=== PATIENT | female | born 1970 | race Caucasian/White ===

== ENCOUNTER 2021-08-20 11:14 | Outpatient (RCR) | payer MEDICAID, SELFPAY ==
[2021-08-20] VITALS (11 sets, daily range): BP systolic 112–143; BP diastolic 71–84; PULSE 75–89; RESP 16–18; TEMP 36.3–37.4; O2SAT 97–99
--- NOTE | 2021-08-20 19:46 | PC.NURSE ---
pt got 2 units of bllod with mikaela problems. SL was d/c intact. she is eating, drinking dn voiding, gave education on blood transfusion reactions, anemia and iron rich food. she has a HBg and md appt on monday.
== END 2021-09-05 23:59 | disposition home or self-care (01) ==
LOC: CCIC 11:14
PROVIDERS: PCP Physician Assistant Medical; Visit Provider Clinical Nurse Specialist
DX: D64.9 Anemia, unspecified (principal)
CPT/HCPCS: 36415; 36430; 86850; 86900; 86901; 86922; 96366; P9016

== ENCOUNTER 2021-08-30 09:15 | Outpatient (CLI) | payer MEDICAID, SELFPAY | END 2021-08-30 09:16 | disposition home or self-care (01) | PROVIDERS: PCP Physician Assistant Medical; Visit Provider Internal Medicine Gastroenterology | DX: D50.9 Iron deficiency anemia, unspecified (principal); K57.30 Diverticulosis of large intestine without perforation or abscess without bleeding; K92.1 Melena; K44.9 Diaphragmatic hernia without obstruction or gangrene; Z86.010 Personal history of colon polyps; Z98.890 Other specified postprocedural states | CPT/HCPCS: 43239; 45378; 88305; J2250; J3010 ==

== ENCOUNTER 2023-03-01 07:29 | Outpatient (CLI) | payer MEDICAID, SELFPAY ==
--- NOTE | 2023-03-01 08:00 | CRLHL7_ITS ---
For Patients: As a result of the Century Cures Act, medical imaging exams and procedure reports are released immediately into your electronic medical record. You may view this report before your referring provider. If you have questions, please contact your health care provider. INDICATION: Large hiatal hernia TECHNIQUE: Volumetric helical scanning of the chest, abdomen and pelvis was performed with 97 cc of Isovue 370 contrast material IV. Coronal and sagittal reconstructions were obtained. COMPARISON: None. FINDINGS: CHEST: A large hiatal hernia is demonstrated. Mild passive atelectasis in the left lower lobe adjacent to the hernia is noted. The lungs are otherwise clear. A calcified granuloma in the left lower lobe is noted. No airway abnormality or pleural effusion is noted. No axillary, mediastinal or hilar adenopathy is apparent. The heart is normal in size. ABDOMEN/PELVIS: Fatty change is demonstrated in the liver. The liver is normal in size and shape. Postop changes of cholecystectomy are noted. The bile ducts are within normal limits. The spleen is normal in size. A number of splenules are noted. A nonspecific 1 cm low-attenuation splenic lesion is demonstrated, presumably a cyst. The kidneys are unremarkable. Colonic diverticulosis is noted. A normal appendix is demonstrated. An IUD is present in the uterine cavity and appears to be properly positioned. The uterus is otherwise unremarkable. The ovaries are negative. No lytic or blastic bone lesion is identified. IMPRESSION: 1. Large hiatal hernia. 2. Fatty liver. 3. Post cholecystectomy. 4. 1 cm low-attenuation splenic lesion, presumably a cyst. 5. Colonic diverticulosis. Please note that all CT scans at this facility use dose modulation, iterative reconstruction, and/or weight-based dosing when appropriate to reduce radiation dose to as low as reasonably achievable. Dictated by Benny Garcia MD @ 03/01/2023 10:33:04 AM (Electronically Signed)
== END 2023-03-01 07:30 | disposition home or self-care (01) ==
LOC: CT 07:34
PROVIDERS: PCP Family Medicine; Visit Provider Internal Medicine Gastroenterology
DX: K44.9 Diaphragmatic hernia without obstruction or gangrene (principal); K76.0 Fatty (change of) liver, not elsewhere classified; K57.30 Diverticulosis of large intestine without perforation or abscess without bleeding; D50.9 Iron deficiency anemia, unspecified; K29.70 Gastritis, unspecified, without bleeding
CPT/HCPCS: 71260; 74177; Q9967

== ENCOUNTER 2023-12-05 13:09 | Emergency (ER) | payer MEDICAID, SELFPAY ==
[2023-12-05] VITALS (28 sets, daily range): BP systolic 125–184; BP diastolic 80–115; PULSE 55–102; RESP 20; TEMP 36.8–37.1; O2SAT 90–99; BMI 26.6
--- NOTE | 2023-12-05 13:31 | CRLHL7_ITS ---
For Patients: As a result of the Century Cures Act, medical imaging exams and procedure reports are released immediately into your electronic medical record. You may view this report before your referring provider. If you have questions, please contact your health care provider. INDICATION: Left flank pain. TECHNIQUE: CT abdomen and pelvis acquired without contrast. COMPARISON: CT chest, abdomen and pelvis 03/01/2023. FINDINGS: Lower chest: Lung bases are clear. Interval Diana fundoplication. No pleural or pericardial effusions. Liver: Unremarkable. Spleen: Suspected small cyst is unchanged. Pancreas: Unremarkable. Gallbladder and bile ducts: Cholecystectomy. No ductal dilatation. Kidneys: A 5 mm stone in the distal left ureter near the ureterovesicular junction causes mild hydroureteronephrosis. Additional nonobstructing renal stones measure up to 5 mm on the left. The unenhanced kidneys are otherwise unremarkable. Adrenal glands: Unremarkable. GI tract: Colonic diverticulosis without evidence of acute diverticulitis. No obstruction or focal inflammatory changes. Normal appendix. No free air or free fluid. Lymph nodes: No pathologic lymphadenopathy. Vascular structures: Mild atherosclerotic disease. No abdominal aortic aneurysm. Pelvic Organs: Intrauterine device appears appropriately positioned. Adnexal regions and bladder as imaged are unremarkable. Bones: No acute or suspicious osseous abnormality. IMPRESSION: Mild left hydroureteronephrosis secondary to distal 5 mm ureteral stone. Dictated by Andry Reyes MD @ 12/05/2023 2:51:20 PM Please note that all CT scans at this facility use dose modulation, iterative reconstruction, and/or weight-based dosing when appropriate to reduce radiation dose to as low as reasonably achievable. Dictated by: Andry Reyes MD @ 12/05/2023 14:51:43 (Electronically Signed)
[2023-12-05] MEDS: MORPHINE 4 MG/ML INJ IVP ×3 (13:39→16:20)
[2023-12-05] MEDS: 0.9 % SODIUM CHLORIDE 500 ML 500 ML IV (13:43)
[2023-12-05] MEDS: ONDANSETRON 2 MG/ML inj 4 MG IVP (13:43)
[2023-12-05 13:47] LABS: Appearance Urine Cloudy (Clear); Bilirubin Urine Negative (Negative); Blood Urine 3+ (Negative); Color Urine Yellow (Yellow); Glucose Urine Negative (Negative); Ketones Urine Trace (Negative); Leukocyte Esterase Urine Trace (Negative); Nitrite Urine Positive (Negative); Protein Urine 2+ (Negative); Specific Gravity Urine >= 1.030 (1.000-1.030); Urobilinogen Urine 0.2 (0.2-1.0); pH Urine 5.5 (5.0-8.5)
[2023-12-05] MEDS: KETOROLAC 15 MG/ML inj IVP (13:47)
[2023-12-05 13:58] LABS: Amorphous Sediment Urine Moderate; Bacteria Urine Many; RBC Urine >100 (0-2); Squamous Epithelial Cell Urine Many (None-Few); WBC Urine 25-50 (0-5)
[2023-12-05 14:00] LABS: Chloride* 100 mmol/L (96-114); Sodium* 137 mmol/L (135-149)
[2023-12-05 14:01] LABS: Basophils Absolute Auto 0.02 K/uL (0.00-0.30); Basophils Percent Auto 0.2 % (0.0-3.0); Eosinophils Absolute Auto 0.03 K/uL (0.00-0.50); Eosinophils Percent Auto 0.4 % (0.0-7.0); Hemoglobin* 14.3 gm/dL (12.0-16.0); Immature Granulocytes Abs Auto 0.02 K/uL (0.00-0.30); Immature Granulocytes Pct Auto 0.2 %; Lymphocytes Percent Auto 15.3 % (20-44); Mean Corpuscular HGB Conc 33 gm/dL (32-36); Mean Corpuscular Hemoglobin 31 pg (26-34); Mean Corpuscular Volume 92 fL (80-100); Monocytes Percent Auto 8.1 % (0.0-11.0); Neutrophils Percent Auto 75.8 % (42.0-72.0); Platelet Count* 233 K/uL (140-440); Potassium* 4.1 mmol/L (3.6-5.1); RDW Coefficient of Variation % 11.7 % (11.5-15.5); Red Blood Count 4.67 m/uL (4.00-5.20); White Blood Count* 8.36 K/uL (4.50-11.00)
[2023-12-05 14:03] LABS: Creatinine* 0.9 mg/dL (0.5-1.5); Est. Creatinine Clearance* 72.08; Estimated Glomerular Filt Rate 76 ml/min
[2023-12-05 14:04] LABS: Anion Gap 13 mEq/L (7-15); Blood Urea Nitrogen* 14 mg/dL (7-30); Calcium* 9.8 mg/dL (8.4-10.6); Carbon Dioxide* 24 mmol/L (20-32); Glucose* 108 mg/dL (60-115)
[2023-12-05 14:08] LABS: C Reactive Protein* < 0.5 mg/dL (0.5-1.0)
[2023-12-05 14:09] LABS: Slide Review Reflex No
[2023-12-05] MEDS: OXYCODONE 5 MG TABLET PO (15:32)
--- NOTE | 2023-12-05 15:38 | ED_ITS ---
HPI - General Adult General Date Seen: 12/05/23 Chief complaint: Abdominal Pain Stated complaint: Poss kidney stone Time Seen by Provider: 12/05/23 13:11 Source: patient, RN notes reviewed and old records reviewed Mode of arrival: ambulatory Limitations: no limitations History of Present Illness HPI narrative: Patient is a 53-year-old woman who presents for evaluation of left flank pain ra diating to the left lower quadrant and groin. Started earlier today and has become severe. She does note a remote history of a kidney stone over 20 years ago, she says she believes she has other stones in her kidneys but has never had another ureteral stone. She has nausea, diaphoresis, no vomiting, no fevers or urinary symptoms otherwise. Related Data Previous Rx's ?Medication ?Instructions ?Recorded celecoxib 100 mg capsule (Celebrex) 100 mg PO BID #30 caps 12/05/23 cephalexin 500 mg capsule 500 mg PO QID #28 caps 12/05/23 ondansetron 4 mg disintegrating 4 mg PO Q8H PRN nausea and 12/05/23 tablet vomiting #10 tabs oxycodone 5 mg tablet 5 mg PO Q6H PRN pain #14 tabs 12/05/23 tamsulosin 0.4 mg capsule (Flomax) 0.4 mg PO DAILY #14 caps 12/05/23 Allergies Allergy/AdvReac Type Severity Reaction Status Date / Time No Known Drug Allergies Allergy Verified 03/01/23 08:35 Review of Systems Status of ROS: Reports: 10 or more systems reviewed and unremarkable except as noted in History and below [facility] Social History Smoking Status: Never smoker How often do you have a drink containing alcohol: 2-3 times a week AUDIT-C Alcohol total score: 3 Non-prescribed substance use: denies use Exam Narrative: Exam Narrative: Vital signs as noted above. In general, an alert, nontoxic woman, looks uncomfortable. Head: Normocephalic, atraumatic. Eyes: Pupils are equal reactive. Extraocular movements are full. Conjunctivae are normal. ENT: Mucous membranes are moist. Throat is normal. Neck: Supple without lymphadenopathy. Heart: Regular rate and rhythm. No murmur or rub. Lungs: Clear bilaterally. No increased work of breathing, crackles or wheezes. No CVA tenderness. Abdomen: Soft and nondistended, minimal left-sided tenderness. No rebound guarding or rigidity. Extremities: Well perfused. No edema. No calf tenderness. Pulses intact. Neurologic: Patient is alert and oriented to person and place. Speech is fluent. Face is symmetric. Moves all extremities equally. Affect: Normal. Skin: Mildly diaphoretic, well perfused. Const: Vital Signs, click to edit/add: Vital Signs - 24 hr 12/05/23 13:15 12/05/23 14:06 12/05/23 14:07 Temperature 98.3 F Pulse Rate 58 L Pulse Rate [Left P ulse Oximeter] 100 Respiratory Rate 20 Blood Pressure Blood Pressure [Ri ght Upper Arm] 173/115 H Pulse Oximetry 98 99 95 Oxygen Delivery Me thod Room Air Oxygen Flow Rate 12/05/23 14:31 12/05/23 14:32 12/05/23 14:45 Temperature Pulse Rate 55 L 58 L 61 Pulse Rate [Left P ulse Oximeter] Respiratory Rate Blood Pressure 129/88 Blood Pressure [Ri ght Upper Arm] Pulse Oximetry 92 90 93 Oxygen Delivery Me thod Oxygen Flow Rate 12/05/23 14:46 12/05/23 15:00 12/05/23 15:01 Temperature Pulse Rate 64 71 Pulse Rate [Left P ulse Oximeter] Respiratory Rate Blood Pressure 138/94 H Blood Pressure [Ri ght Upper Arm] Pulse Oximetry 93 93 90 Oxygen Delivery Me thod Nasal Cannula Oxygen Flow Rate 1 12/05/23 15:15 12/05/23 15:30 12/05/23 15:45 Temperature Pulse Rate 68 66 58 L Pulse Rate [Left P ulse Oximeter] Respiratory Rate Blood Pressure Blood Pressure [Ri ght Upper Arm] Pulse Oximetry 93 96 98 Oxygen Delivery Me thod Oxygen Flow Rate 12/05/23 16:00 12/05/23 16:02 12/05/23 16:15 Temperature Pulse Rate 62 64 71 Pulse Rate [Left P ulse Oximeter] Respiratory Rate Blood Pressure 138/90 H Blood Pressure [Ri ght Upper Arm] Pulse Oximetry 99 99 96 Oxygen Delivery Me thod Oxygen Flow Rate Course Course ED Course: An IV was established here, she had Toradol, Zofran, 4 mg of morphine and then a repeat dose of morphine, felt comfortable at that time. Labs are notable for normal white blood cell count of 8, metabolic panel normal, BUN is 14, creatinine 0.9. CRP is less than 0.5. Urinalysis did show greater than 100 red cells, 25-50 white cells but also many squames. Diagnostic considerations would include kidney stone, pyelonephritis, diverticulitis, perforated viscus, pneumonia others. CT without contrast was ordered of the abdomen and, by my review this showed a 5 mm stone in the left ureter with mild hydronephrosis. Final radiology read is in agreement, linked below. No evidence of systemic infection, but I think with the number of white cells in her urine I will cover her with an antibiotic. We discussed pain management at home, she is concerned that she will not be able to control pain at home and would prefer to be transferred for removal of the stone. I did talk with the hospitalist at [facility], which currently has beds available. She agreed to accept the patient there in transfer. Note that I was not able to speak with Urology prior to the transfer, did explain to them that urology will consult once they are up there and will have the final say in management of this. She had another 4 mg of morphine which she said was not helping, she says she does not do well with Dilaudid, elected to try ketamine 20 mg IV. Vital Signs Vital signs: Initial Vital Signs Temperature 98.3 F 12/05/23 13:15 Temperature Source Temporal Artery Scan 12/05/23 13:15 Pulse Rate 100 12/05/23 13:15 Respiratory Rate 20 12/05/23 13:15 Blood Pressure 173/115 H 12/05/23 13:15 Blood Pressure Mean 134 H 12/05/23 13:15 Blood Pressure Position Standing 12/05/23 13:15 Pulse Oximetry 98 12/05/23 13:15 Oxygen Delivery Method Room Air 12/05/23 13:15 Vital Signs Temperature 98.3 F 12/05/23 13:15 Pulse Rate 100 12/05/23 13:15 Respiratory Rate 20 12/05/23 13:15 Blood Pressure 173/115 H 12/05/23 13:15 Pulse Oximetry 98 12/05/23 13:15 Oxygen Delivery Method Room Air 12/05/23 13:15 Temperature 98.3 F 12/05/23 13:15 Pulse Rate 71 12/05/23 16:15 Respiratory Rate 20 12/05/23 13:15 Blood Pressure 138/90 H 12/05/23 16:02 Pulse Oximetry 96 12/05/23 16:15 Oxygen Delivery Method Nasal Cannula 12/05/23 14:46 Oxygen Flow Rate 1 12/05/23 14:46 Medications Administered Medications: Discontinued Medications Generic Name Dose Route Start Last Admin Trade Name Winnie PRN Reason Stop Dose Admin Sodium Chloride 500 mls @ 500 mls/hr 12/05/23 13:30 12/05/23 14:35 0.9 % Sodium Chloride 500 Ml IV 12/05/23 14:29 Infused .Q1H ONE Infusion Ketorolac Tromethamine 15 mg 12/05/23 13:30 12/05/23 13:47 Ketorolac 15 Mg/Ml Inj IVP 12/05/23 13:31 15 mg ONCE ONE Administration Morphine Sulfate 4 mg 12/05/23 13:30 12/05/23 13:39 Morphine 4 Mg/Ml Inj IVP 12/05/23 13:31 4 mg ONCE ONE Administration Morphine Sulfate 4 mg 12/05/23 13:55 12/05/23 13:59 Morphine 4 Mg/Ml Inj IVP 12/05/23 13:56 4 mg ONCE ONE Administration Morphine Sulfate 4 mg 12/05/23 16:15 12/05/23 16:20 Morphine 4 Mg/Ml Inj IVP 12/05/23 16:16 4 mg ONCE ONE Administration Ondansetron HCl 4 mg 12/05/23 13:30 12/05/23 13:43 Ondansetron 2 Mg/Ml Inj IVP 12/05/23 13:31 4 mg ONCE ONE Administration Oxycodone HCl 5 mg 12/05/23 15:18 12/05/23 15:32 Oxycodone 5 Mg Tablet PO 12/05/23 15:19 5 mg ONCE ONE Administration Medical Decision Making Lab Data Labs: Lab Results 12/05/23 12/05/23 Range/Units 13:23 13:36 WBC 8.36 (4.50-11.00) K/uL RBC 4.67 (4.00-5.20) m/uL Hgb 14.3 (12.0-16.0) gm/dL Hct 43.0 (33.0-51.0) % MCV 92 (80-100) fL MCH 31 (26-34) pg MCHC 33 (32-36) gm/dL RDW Coeff of Josi 11.7 (11.5-15.5) % Plt Count 233 (140-440) K/uL Neut % (Auto) 75.8 H (42.0-72.0) % Lymph % (Auto) 15.3 L (20-44) % Preston % (Auto) 8.1 (0.0-11.0) % Eos % (Auto) 0.4 (0.0-7.0) % Baso % (Auto) 0.2 (0.0-3.0) % Neut # (Auto) 6.30 (1.7-7.0) K/uL Lymph # (Auto) 1.30 (0.90-2.90) K/uL Preston # (Auto) 0.70 (0.00-0.90) K/UL Eos # (Auto) 0.03 (0.00-0.50) K/uL Baso # (Auto) 0.02 (0.00-0.30) K/uL Abs Immat Gran (auto) 0.02 (0.00-0.30) K/uL Imm/Tot Granulo (auto) 0.2 % Sodium 137 (135-149) mmol/L Potassium 4.1 (3.6-5.1) mmol/L Chloride 100 (96-114) mmol/L Carbon Dioxide 24 (20-32) mmol/L Anion Gap 13 (7-15) mEq/L BUN 14 (7-30) mg/dL Creatinine 0.9 (0.5-1.5) mg/dL Estimated Creat Clear 72.08 Estimated GFR 76 ml/min Glucose 108 (60-115) mg/dL Calcium 9.8 (8.4-10.6) mg/dL C-Reactive Protein < 0.5 L (0.5-1.0) mg/dL Urine Color Yellow (Yellow) Urine Appearance Cloudy A (Clear) Urine pH 5.5 (5.0-8.5) Ur Specific [place] >= 1.030 (1.000-1.030) Urine Protein 2+ A (Negative) Urine Glucose (UA) Negative (Negative) Urine Ketones Trace A (Negative) Urine Blood 3+ A (Negative) Urine Nitrite Positive A (Negative) Urine Bilirubin Negative (Negative) Urine Urobilinogen 0.2 (0.2-1.0) Ur Leukocyte Esterase Trace A (Negative) Urine RBC >100 A (0-2) Urine WBC 25-50 A (0-5) Ur Squamous Epith Cells Many A (None-Few) Amorphous Sediment Moderate A (None) Urine Bacteria Many A (None) Imaging Data CT scan - abdomen: Radiologist's impression: Patient: CLAUDIA MELGAR Facility: [facility] Site . Site : 1970 Study: CT-Abdomen/Pelvis WITHOUT-12/05/2023 2:27:14 PM Ordering Physician: Мария Barbosa Final Report: INDICATION: Left flank pain. TECHNIQUE: CT abdomen and pelvis acquired without contrast. COMPARISON: CT chest, abdomen and pelvis 03/01/2023. FINDINGS: Lower chest: Lung bases are clear. Interval Diana fundoplication. No pleural or pericardial effusions. Liver: Unremarkable. Spleen: Suspected small cyst is unchanged. Pancreas: Unremarkable. Gallbladder and bile ducts: Cholecystectomy. No ductal dilatation. Kidneys: A 5 mm stone in the distal left ureter near the ureterovesicular samson ction causes mild hydroureteronephrosis. Additional nonobstructing renal stones measure up to 5 mm on the left. The unenhanced kidneys are otherwise unremarkable. Adrenal glands: Unremarkable. GI tract: Colonic diverticulosis without evidence of acute diverticulitis. No obstruction or focal inflammatory changes. Normal appendix. No free air or free fluid. Lymph nodes: No pathologic lymphadenopathy. Vascular structures: Mild atherosclerotic disease. No abdominal aortic aneurysm. Pelvic Organs: Intrauterine device appears appropriately positioned. Adnexal regions and bladder as imaged are unremarkable. Bones: No acute or suspicious osseous abnormality. IMPRESSION: Mild left hydroureteronephrosis secondary to distal 5 mm ureteral stone. Dictated by Andry Reyes MD @ 12/05/2023 2:51:20 PM Please note that all CT scans at this facility use dose modulation, iterative reconstruction, and/or weight-based dosing when appropriate to reduce radiation dose to as low as reasonably achievable. Dictated by: Andry Reyes MD @ 12/05/2023 14:51:43 Discharge Plan Discharge Clinical Impression: Calculus of left ureter Patient Disposition: Home, Self-Care Condition: Improved Instructions: Ureteral Stones (ED) Additional Instructions: I would call today or tomorrow to arrange for Urology follow-up, . For pain, Celebrex twice daily as prescribed, oxycodone if needed for uncontrolled pain. Zofran if needed for nausea. Flomax and Keflex as prescribed. If you have severe uncontrolled pain despite these medications, new symptoms such as fevers, shaking chills, vomiting, return at any time to the emergency department. Push fluids, strain urine. Prescriptions: New celecoxib [Celebrex] 100 mg capsule 100 mg PO BID Qty: 30 2RF cephalexin 500 mg capsule 500 mg PO QID Qty: 28 0RF tamsulosin [Flomax] 0.4 mg capsule 0.4 mg PO DAILY Qty: 14 2RF oxycodone 5 mg tablet 5 mg PO Q6H PRN (Reason: pain) Qty: 14 0RF ondansetron 4 mg tablet,disintegrating 4 mg PO Q8H PRN (Reason: nausea and vomiting) Qty: 10 0RF Follow Up/Referrals: Latisha Morris DO [Primary Care Provider] - Stand Alone Forms: [email or web address] Info Instructions
== END 2023-12-05 18:34 | disposition home or self-care (01) ==
PROVIDERS: Emergency Provider Emergency Medicine; PCP Family Medicine
DX: N20.1 Calculus of ureter (principal)
CPT/HCPCS: 36415; 74176; 80048; 81001; 85025; 86140; 87086; 87186; 94761; 96365; 96375; 99284; A9270; J1885; J2270; J2405; J7030

== ENCOUNTER 2023-12-05 18:32 | Outpatient (CLI) | payer MEDICAID, SELFPAY | END 2023-12-05 18:33 | disposition home or self-care (01) | LOC: AMB 12-19 00:21 | PROVIDERS: PCP Family Medicine; Visit Provider Student in an Organized Health Care Education/Training Program | DX: N20.0 Calculus of kidney (principal); R10.9 Unspecified abdominal pain | CPT/HCPCS: A0425; A0427 ==

== ENCOUNTER 2024-07-20 08:37 | Outpatient (CLI) | payer MEDICAID, SELFPAY | END 2024-07-20 08:38 | disposition home or self-care (01) | LOC: NFLDREF 07-22 07:07 | PROVIDERS: PCP Family Medicine; Referring Provider Family Medicine | DX: R39.15 Urgency of urination (principal); N39.0 Urinary tract infection, site not specified | CPT/HCPCS: 87086; 87186 ==